=== PATIENT | male | born 1995 | race African-American/Black ===

== ENCOUNTER 2020-10-09 20:36 | Emergency (ER) | payer OTHER ==
[2020-10-09 20:40] VITALS: TEMP 98.3; BMI 19.5
[2020-10-09] MEDS ORDERED: SODIUM CHLORIDE 1,000 ML IV STA ×2 (21:46→22:56)
[2020-10-09] MEDS ORDERED: ONDANSETRON 4 MG/2 ML VIAL IVPUSH ONE (21:46)
[2020-10-09] MEDS ORDERED: ONDANSETRON 4 MG/2 ML VIAL ONE (21:54)
[2020-10-09 22:16] LABS: BASO % 0.5 % (0-2.0); EOS % 0.5 % (0-4.5); HEMATOCRIT 49.9 % (35.4-49); LYMPH % 5.1 % (8-40); MCH 31.4 pg (25.7-33.7); MCHC 36.1 g/dl (32.0-35.9); MEAN CELL VOLUME 86.8 fl (80-96); MEAN PLT VOLUME 8.2 fl (7.5-11.1); MONO % 6.9 % (3.8-10.2); PLATELET COUNT 173 K/MM3 (134-434); RBC 5.75 M/mm3 (4.00-5.60); RDW 14.4 % (11.9-15.9); WHITE BLOOD COUNT 11.4 K/mm3 (4.0-10.0)
[2020-10-09 23:01] LABS: BLOOD UREA NITROGEN 10.8 mg/dL (7-18)
[2020-10-09 23:02] LABS: ALBUMIN 3.9 g/dl (3.4-5.0)
[2020-10-09 23:06] LABS: BILIRUBIN,TOTAL 1.1 mg/dL (0.2-1); TOT PROT 6.9 g/dl (6.4-8.2)
[2020-10-09 23:09] LABS: CALCIUM 8.1 mg/dL (8.5-10.1)
[2020-10-10 02:11] VITALS: BP 118/73; PULSE 81
== END 2020-10-10 02:35 | disposition home or self-care (01) ==
LOC: JER 20:36
PROC: 3E033GC Introduction of Other Therapeutic Substance into Peripheral Vein, Percutaneous Approach (ICD-10-PCS; principal; 2020-10-09)
PROC: 3E0337Z Introduction of Electrolytic and Water Balance Substance into Peripheral Vein, Percutaneous Approach (ICD-10-PCS; principal; 2020-10-09)
DX: R10.84 Generalized abdominal pain (principal); R11.2 Nausea with vomiting, unspecified
CPT/HCPCS: 36415; 80053; 83690; 85025; 99284-25